=== PATIENT | male | born 1985 | race Caucasian/White ===

== ENCOUNTER 2016-11-19 07:58 | Emergency (ER) | payer SELFPAY | END 2016-11-19 09:53 | disposition home or self-care (01) | LOC: ER 07:58 | DX: M51.37 Other intervertebral disc degeneration, lumbosacral region (principal); R11.0 Nausea; R10.30 Lower abdominal pain, unspecified; F41.9 Anxiety disorder, unspecified; F17.210 Nicotine dependence, cigarettes, uncomplicated ==